=== PATIENT | female | born 2000 | race Two or more races ===

== ENCOUNTER 2025-08-23 09:17 | Outpatient (CLI) | payer OTHER | END 2025-08-23 09:18 | disposition home or self-care (01) | LOC: PRENATAL 09:17 | PROVIDERS: ATTEND Obstetrics & Gynecology Maternal & Fetal Medicine | DX: O26.849 Uterine size-date discrepancy, unspecified trimester (principal); O28.3 Abnormal ultrasonic finding on antenatal screening of mother; Z14.8 Genetic carrier of other disease; O41.00X0 Oligohydramnios, unspecified trimester, not applicable or unspecified; Z3A.17 17 weeks gestation of pregnancy ==

== ENCOUNTER 2025-08-25 16:06 | Inpatient (IN) | payer OTHER ==
[~2025-08-25] VITALS: Ht 170.2 cm; Wt 88.9 kg
[2025-08-25 16:40] VITALS: BP 106/60
[2025-08-25] MEDS ORDERED: PRENATAL TABLE1 EAC1 PO (17:04)
[2025-08-25 17:20] LABS: BASO % 0.4 % (0.1-1.2); EOS # 0.08 (0.04-0.54); EOS % 0.9 % (0.7-7.0); LYMPH # 1.44 (1.18-3.74); LYMPH % 15.6 % (19.3-53.1); MEAN PLATELET VOLUME 11.00 fl (9.4-12.4); MONO # 0.63 (0.24-0.82); MONO % 6.8 % (4.7-12.5); NEUT # 7.04 (1.56-6.13); NEUT % 76.0 % (34.0-71.1); RED CELL DISTRIBUTION WIDTH 15.0 % (11.6-14.4)
[2025-08-25] MEDS ORDERED: RINGERS SOLUTION,LACTATED 1,000 ML IV SCH (17:30)
[2025-08-25 17:39] LABS: INR < 0.93
[2025-08-25 17:47] LABS: ALT/SGPT 29.0 U/L (12-78); AST/SGOT 17.0 U/L (15-37); BILIRUBIN TOTAL 0.2 mg/dL (0.3-1.2); BUN CREA RATIO 11.0 (7.0-25.0); CREATININE SERUM 0.62 mg/dL (0.55-1.02); GFR 115.46; GLOBULINA 4.1 G/DL (2.4-3.5); GLUCOSE FASTING 89.0 mg/dL (65-100); OSMOLALITY SERUM 277.0 MOSM/KG (275-295)
[2025-08-25 20:00] VITALS: BP 93/60
[2025-08-25] MEDS ORDERED: MISOPROSTOL 100 MCG TABLET ONE (20:19)
[2025-08-25] MEDS ORDERED: ACETAMINOPHEN 500 MG GEL..CAP PO PRN (20:45)
[2025-08-25] MEDS ORDERED: MISOPROSTOL 100 MCG TABLET VAG ONE (20:45)
[2025-08-25] MEDS ORDERED: MORPHINE SULFATE 4 MG/ML CARTRIDGE IV PRN (20:45)
[2025-08-25 23:39] VITALS: BP 86/54
[2025-08-26 03:01] VITALS: BP 94/51
[2025-08-26] MEDS ORDERED: MISOPROSTOL 100 MCG TABLET VAG NR ×2 (07:00→11:00)
[2025-08-26] MEDS ORDERED: MISOPROSTOL 100 MCG TABLET BUCAL NR ×2 (07:00→11:00)
[2025-08-26 07:09] VITALS: BP 91/43
[2025-08-26 10:34] VITALS: BP 88/49
[2025-08-26] MEDS ORDERED: MISOPROSTOL 100 MCG TABLET ONE ×4 (10:41→19:42)
[2025-08-26] MEDS ORDERED: MISOPROSTOL 100 MCG TABLET PO ONE (15:00)
[2025-08-26] MEDS ORDERED: MISOPROSTOL 100 MCG TABLET VAG ONE ×2 (15:00→20:00)
[2025-08-26 15:45] VITALS: BP 111/63
[2025-08-26] MEDS ORDERED: MISOPROSTOL 100 MCG TABLET BUCAL ONE (20:00)
[2025-08-26 20:30] VITALS: BP 91/50
[2025-08-26] MEDS ORDERED: OXYTOCIN 20 UNITS/1000ML RL PIGGYBAG IV ONE (22:31)
[2025-08-26] MEDS ORDERED: CEFAZOLIN SODIUM 1,000 MG VIAL IV ONE (23:30)
[2025-08-26] MEDS ORDERED: OXYTOCIN 1,000 ML IV SCH (23:30)
[2025-08-26] MEDS ORDERED: CHLORHEXIDINE GLUCONATE 120 ML BOTTLE TOP SCH (23:30)
[2025-08-26 23:40] VITALS: BP 97/59; O2SAT 98
[2025-08-27 02:15] VITALS: BP 86/53; O2SAT 100
[2025-08-27 08:00] VITALS: BP 91/60; O2SAT 99
== END 2025-08-27 12:51 | disposition home or self-care (01) | DRG 805 ==
LOC: LDR 16:06 → SURG 08-27 01:23
PROVIDERS: ADMIT Obstetrics & Gynecology; ATTEND Obstetrics & Gynecology
PROC: 10E0XZZ Delivery of Products of Conception, External Approach (ICD-10-PCS; principal; 2025-08-25)
PROC: 3E0DXGC Introduction of Other Therapeutic Substance into Mouth and Pharynx, External Approach (ICD-10-PCS; 2025-08-25)
PROC: 3E033VJ Introduction of Other Hormone into Peripheral Vein, Percutaneous Approach (ICD-10-PCS; 2025-08-25)
PROC: 3E0P7VZ Introduction of Hormone into Female Reproductive, Via Natural or Artificial Opening (ICD-10-PCS; 2025-08-25)
PROC: 4A1HXCZ Monitoring of Products of Conception, Cardiac Rate, External Approach (ICD-10-PCS; 2025-08-25)
DX: O02.1 Missed abortion (principal); O60.12X0 Preterm labor second trimester with preterm delivery second trimester, not applicable or unspecified; Z37.1 Single stillbirth; Z3A.17 17 weeks gestation of pregnancy